=== PATIENT | male | born 1980 | race Caucasian/White ===

== ENCOUNTER 2016-08-14 19:51 | Emergency (ER) | payer OTHER ==
[~2016-08-14] VITALS: Ht 172.7 cm; Wt 104.3 kg
[2016-08-14 21:13] VITALS: BP 145/86
== END 2016-08-14 21:15 ==
LOC: ER 19:53
DX: F10.10 Alcohol abuse, uncomplicated (principal); F12.10 Cannabis abuse, uncomplicated; E86.0 Dehydration; F31.9 Bipolar disorder, unspecified; F32.9 Major depressive disorder, single episode, unspecified
CPT/HCPCS: A4606; Z7610

== ENCOUNTER 2019-08-17 04:35 | Inpatient (IN) | payer MEDICAID, OTHER ==
[~2019-08-17] VITALS: Ht 177.8 cm; Wt 108.9 kg
[2019-08-17] MEDS ORDERED: LORAZEPAM INJ 2 MG/ML VIAL ONE ×3 (04:39→05:54)
[2019-08-17] MEDS ORDERED: LORAZEPAM INJ 2 MG/ML VIAL IM ONE ×3 (05:00→06:00)
--- NOTE | 2019-08-17 11:01 | NUR ---
PT WOKE UP URINATED ON HIMSEL CHANGED AND CLEN PT. TOLERATING POS FELL BACK TO SLEEP
--- NOTE | 2019-08-17 16:16 | NUR ---
pt still sleepy cont to monitor
[2019-08-17] MEDS ORDERED: IV NS 0.9% 1,000 ML BAG IV ONE (19:00)
[2019-08-17 19:02] LABS: BASOPHILS # (AUTO) 0.1 /CMM (0.0-0.2); BASOPHILS % (AUTO) 1.1 % (0.0-2.0); EOSINOPHILS % (AUTO) 0.1 % (0.0-6.0); HEMATOCRIT 45 % (39-51); HEMOGLOBIN 15.1 g/dL (13.5-17.5); LYMPHOCYTES # (AUTO) 2.5 /CMM (0.8-4.8); LYMPHOCYTES % (AUTO) 17.8 % (20.0-44.0); MEAN CORPUSCULAR HGB CONC 34 g/dl (31.0-36.0); MEAN CORPUSCULAR VOLUME 91 fL (80-96); MONOCYTES # (AUTO) 1.6 /CMM (0.1-1.30); MONOCYTES % (AUTO) 11.9 % (2.0-12.0); NEUTROPHILS # (AUTO) 9.6 /CMM (1.8-8.9); NEUTROPHILS % (AUTO) 69.1 % (43.0-81.0); PLATELET COUNT (AUTO) 234 /CMM (150-450); RED BLOOD CELL COUNT(AUTO) 4.91 MIL/uL (4.5-6.0); WHITE BLOOD COUNT (AUTO) 13.8 K/uL (4.3-11.0)
--- NOTE | 2019-08-17 19:10 | NUR ---
pt awake iv strted 22g rt fa labs and ua sent to lab vss
[2019-08-17 19:12] LABS: APPEARANCE,URINE Clear (CLEAR); BILIRUBIN,URINE SMALL (NEGATIVE); BLOOD, URINE Large Ery/uL (NEGATIVE); COLOR,URINE Dark (YELLOW); KETONES,URINE 15 (NEGATIVE); LEUKOCYTE ESTERASE ,URINE Negative (NEGATIVE); NITRITE, URINE Negative (NEGATIVE); PROTEIN,URINE 100 mg/dl (NEGATIVE); UGLUCOSE Negative (NEGATIVE)
[2019-08-17 19:18] LABS: ALANINE AMINOTRANSFERASE 118 U/L (12-78); ALBUMIN 3.7 g/dL (3.4-5.0); ALKALINE PHOSPHATASE 70 U/L (46-116); ASPARTATE AMINOTRANSFERASE 367 U/L (15-37); BILIRUBIN,DIRECT 0.4 mg/dL (0.0-0.2); BILIRUBIN,TOTAL 2.1 mg/dL (0.2-1.0); CALCIUM, SERUM 8.9 mg/dL (8.5-10.1); CARBON DIOXIDE 24 mmol/L (21-32); CHLORIDE 101 mmol/L (98-107); CREATININE 1.3 mg/dL (0.6-1.3); GLUCOSE 97 mg/dL (74-106); POTASSIUM 4.4 mmol/L (3.5-5.1); SODIUM SERUM 137 mmol/L (136-145); TOTAL PROTEIN, SERUM 7.3 g/dL (6.4-8.2); UREA NITROGEN, BLOOD 27 mg/dL (7-18)
[2019-08-17 19:23] LABS: ACETAMINOPHEN 0 ug/ml (10-30); ALCOHOL, BLOOD < 3 mg/dL (0-0); SALICYLATE 0.7 mg/dL (2.8-20.0)
[2019-08-17 19:37] LABS: BACTERIA,URINE None seen /HPF (None Seen); SQUAMOUS EPITHELIAL CELL,UR None Seen /HPF (None Seen)
[2019-08-17 19:38] LABS: URINE AMORPHOUS URATE Few /HPF (None Seen)
--- NOTE | 2019-08-17 19:45 | NUR ---
Patient is resting comfortably in bed with eyes closed. Easily aroused. VSS
[2019-08-17] MEDS ORDERED: PROPOFOL 20 ML IV ONE (22:26)
--- NOTE | 2019-08-17 22:35 | NUR ---
r elbow reduction under mod sedation done with dr. donovan. total of propofol 140mcg given under direct supervision of dr donovan. see nursing intervention notes:
--- NOTE | 2019-08-17 23:27 | NUR ---
GAVE MOVESHEET TO ADMITTING FOR INSURANCE AUTH
--- NOTE | 2019-08-17 23:33 | NUR ---
Patient is resting comfortably in bed with eyes closed. Easily aroused. VSS
[2019-08-18] MEDS ORDERED: PROPOFOL 200 MG/20 ML VIAL IV ONE
[2019-08-18] MEDS ORDERED: IV NS 0.9% 1,000 ML BAG IV ONE
[2019-08-18] MEDS ORDERED: IV NS 0.9% 1,000 ML IV PRN ×2 (00:01→12:47)
--- NOTE | 2019-08-18 00:07 | NUR ---
REPORT GIVEN TO WERO SUH.
--- NOTE | 2019-08-18 00:08 | NUR ---
BED 329
[2019-08-18 00:25] VITALS: BP 132/72
--- NOTE | 2019-08-18 00:25 | NUR ---
TELERN RECEIVED FROM ER VIA [facility] ACCOMPANIED BY POLICE OFFICERS AND ER STAFF. SLEEPY, SEDATED, ABLE TO ANSWER SOME QUESTIONS DURING INTERVIEW, EASILY FALLS ASLEEP. LEFT AC HL PATENT. SOME REDDENED AREAS ON RIGHT LOWER EXTREMITY AND LEFT KNEE AND THIGH. LEFT WRIST REDNESS SEEN. PICTURES TAKEN. TO CONTINUE.
[2019-08-18] MEDS ORDERED: MAGNESIUM HYDROXIDE 30 ML UDC PO PRN (00:30)
[2019-08-18] MEDS ORDERED: MORPHINE SULFATE INJ 2 MG/ML DISP.SYRIN IV PRN (00:30)
[2019-08-18] MEDS ORDERED: HYDROCODONE/APAP 5/325MG 1 EACH TABLET PO PRN (00:30)
[2019-08-18] MEDS ORDERED: MAG HYDROX/AL HYDROX/SIMETH 30 ML UDC PO PRN (00:30)
[2019-08-18] MEDS ORDERED: ACETAMINOPHEN 325 MG TABLET PO PRN (00:30)
[2019-08-18] MEDS ORDERED: Z GUARD REMEDY 2 OZ OINT TP PRN (00:30)
[2019-08-18] MEDS ORDERED: ONDANSETRON HCL/PF 4 MG/2 ML VIAL IVP PRN (00:30)
[2019-08-18 01:04] LABS: BASOPHILS # (AUTO) 0.1 /CMM (0.0-0.2); BASOPHILS % (AUTO) 0.6 % (0.0-2.0); EOSINOPHILS % (AUTO) 0.1 % (0.0-6.0); HEMATOCRIT 42 % (39-51); LYMPHOCYTES # (AUTO) 1.6 /CMM (0.8-4.8); LYMPHOCYTES % (AUTO) 13.4 % (20.0-44.0); MEAN CORPUSCULAR HGB CONC 33 g/dl (31.0-36.0); MEAN CORPUSCULAR VOLUME 91 fL (80-96); MONOCYTES # (AUTO) 1.2 /CMM (0.1-1.30); MONOCYTES % (AUTO) 10.3 % (2.0-12.0); NEUTROPHILS # (AUTO) 8.9 /CMM (1.8-8.9); NEUTROPHILS % (AUTO) 75.6 % (43.0-81.0); PLATELET COUNT (AUTO) 159 /CMM (150-450); RED BLOOD CELL COUNT(AUTO) 4.65 MIL/uL (4.5-6.0); WHITE BLOOD COUNT (AUTO) 11.8 K/uL (4.3-11.0)
[2019-08-18 01:17] LABS: ALBUMIN 3.1 g/dL (3.4-5.0); BILIRUBIN,TOTAL 1.8 mg/dL (0.2-1.0); CREATININE 1.1 mg/dL (0.6-1.3); POTASSIUM 3.9 mmol/L (3.5-5.1); TOTAL PROTEIN, SERUM 6.2 g/dL (6.4-8.2)
--- NOTE | 2019-08-18 02:30 | NUR ---
TELERN STARTED ON IVF NS AT 125CC/HR. REMAINS SR ON THE MONITOR. PATIENT DEEPLY ASLEEP.
[2019-08-18 05:56] VITALS: BP 129/81
--- NOTE | 2019-08-18 05:57 | NUR ---
TELERN REMAINS SR ON THE MONITOR. SLEEPING, EASILY AWAKENED WITH TOUCH. IVF CONTINUED. ORTHO MD TO SEE PATIENT TODAY.
--- NOTE | 2019-08-18 07:30 | NUR ---
COMPLIANCE LEAD OPENING NOTES RECEIVED PATIENT IN BED RESTING COMFORTABLY IN MODERATE HIGH BACK REST. PER INSPECTOR RAW QUARTZ NURSE PATIENT IS SEDATED, AWAKE OVERNIGHT MONITOR OUTSIDE THE ROOM. NO SIGNS OF DISTRESS NOTED AT THIS TIME. IV FLUIDS ON RAC#20 RUNNING @125 ML/HR. PATENT AND INTACT. ON TELE MONITOR WITH CURRENT READING OF SR WITH HR OF 72. SAFETY MEASURES IN PLACE, BED IN LOWEST LOCKED POSITION WITH SIDE RAILS UP X3. CALL LIGHT WITHIN REACH. WILL CONTINUE TO MONITOR. Addendum: 08/18/19 at 1043 by LUIS AGARWAL RN PATIENT IS HANDCUFF TO THE BED.
[2019-08-18 08:00] VITALS: BP 113/61
--- NOTE | 2019-08-18 10:30 | NUR ---
RN NOTES PATIENT CAMEBACK FROM CT, NO SIGNS OF DISTRESS NOTED. V/S WNL. WILL CONTINUE TO MONITOR.
--- NOTE | 2019-08-18 10:30 | NUR ---
RN NOTES PATIENT LEFT UNIT VIA HOSPITAL BED WITH [address]AFF GO[address] ON ELBOW, NO SIGNS OF DISTRESS. V/S WNL.
--- NOTE | 2019-08-18 11:49 | NUR ---
BABY STROLLER RENTAL CLERK was informed by YURI Capellan that [facility] released the pt. and requested to call them once pt. is ready for discharge. Per YURI Capellan, they will picker tender the pt. upon discharge. Officer Gino (#[id number]) Call [employer] Professor .
--- NOTE | 2019-08-18 16:30 | NUR ---
RN NOTES PICKED UP BY O.R STAFF VIA HOSPITAL BED GOING FOR SURGERY (CLOSE REDUCTION OF RIGHT ELBOW), CONSENT SIGNED, V/S WNL. NO SIGNS OF DISTRESS NOTED.
[2019-08-18] MEDS ORDERED: ANESTHESIA TRAY IN PYXIS 1 EA TRAY MC ONE (16:34)
[2019-08-18] MEDS ORDERED: FENTANYL PF 100MCG/2ML AMPUL ONE ×2 (16:47→17:56)
--- NOTE | 2019-08-18 18:50 | NUR ---
RN CLOSING NOTES PATIENT JUST CAME BACK FROM SURGERY VIA HOSPITAL BED WITH 2 OR STAFF. PATIENT ASLEEP, S/P CLOSED REDUCTION ON RIGHT ELBOW. NOTED SLING ON RIGHT ARM. V/S WNL. NO SIGNS OF DISTRESS. ALL ORDERS IN AND CARRIED OUT. WILL ENDORSE TO REPAIRER RESISTANCE WELDING MACHINES NURSE FOR MAHOGANY.
--- NOTE | 2019-08-18 19:00 | NUR ---
MS RN OPENING NOTES Received patient A/O x3, awake on bed. On RA, no SOB/respiratory distress noted at this time. S/P R elbow close reduction day 0, with sling on, with controllable pain level at this time. Reinstructed patient not to move the affected elbow, ROM to fingers only. Kept on bed clean, dry and comfortable. Call light within easy reach. On fall and aspiration precautions. Call light within easy reach. Will continue to monitor accordingly.
[2019-08-18 20:42] VITALS: BP 133/71
[2019-08-18 20:44] VITALS: BP 100/54
--- NOTE | 2019-08-19 06:33 | NUR ---
MS RN CLOSING NOTES Patient asleep, easily awaken on bed. On RA, no SOB/respiratory distress noted at this time. No new unusualities noted at this time. All due meds given as ordered. All nursing needs attended. Kept on bed clean, dry and comfortable. On fall and aspiration precautions. Call light within easy reach. Endorsed to the next shift.
--- NOTE | 2019-08-19 07:20 | NUR ---
MS/RN OPENING NOTES RECEIVED PATIENT IN BED SLEEPING COMFORTABLY. EASILY AROUSABLE. NO PAIN OR ACUTE DISTRESS AT THIS TIME. RESPIRATION EVEN AND UNLABORED. SKIN IS DRY WARM TO TOUCH. PATIENT NOTED WITH SLING ON R ELBOW. CONTINUES TO REINFORCE TO NOT MOVE THE AFFECTED ELBOW. ALL NEEDS ANTICIPATED. CALL LIGHT WITHIN REACHED. BED LOCKED AND IN LOWEST POSITION. SAFETY MAINTAINED. WILL CONTINUE TO MONITOR CLOSELY.
[2019-08-19 07:37] LABS: BASOPHILS % (AUTO) 0.5 % (0.0-2.0); EOSINOPHILS % (AUTO) 0.6 % (0.0-6.0); HEMATOCRIT 40 % (39-51); HEMOGLOBIN 13.6 g/dL (13.5-17.5); LYMPHOCYTES # (AUTO) 1.3 /CMM (0.8-4.8); LYMPHOCYTES % (AUTO) 21.7 % (20.0-44.0); MEAN CORPUSCULAR HGB CONC 34 g/dl (31.0-36.0); MEAN CORPUSCULAR VOLUME 92 fL (80-96); MONOCYTES # (AUTO) 0.8 /CMM (0.1-1.30); MONOCYTES % (AUTO) 12.9 % (2.0-12.0); NEUTROPHILS # (AUTO) 3.9 /CMM (1.8-8.9); NEUTROPHILS % (AUTO) 64.3 % (43.0-81.0); PLATELET COUNT (AUTO) 145 /CMM (150-450); RED BLOOD CELL COUNT(AUTO) 4.41 MIL/uL (4.5-6.0); WHITE BLOOD COUNT (AUTO) 6.1 K/uL (4.3-11.0)
[2019-08-19 07:57] LABS: ALBUMIN 2.7 g/dL (3.4-5.0); BILIRUBIN,TOTAL 0.7 mg/dL (0.2-1.0); CALCIUM, SERUM 8.1 mg/dL (8.5-10.1); CREATININE 0.7 mg/dL (0.6-1.3); PHOSPHORUS 2.2 mg/dL (2.5-4.9); POTASSIUM 3.7 mmol/L (3.5-5.1); TOTAL PROTEIN, SERUM 5.9 g/dL (6.4-8.2)
[2019-08-19] MEDS ORDERED: K PHOS NEUTRAL 250 MG TABLET PO ONE ×2 (08:30→10:00)
[2019-08-19 08:49] VITALS: BP 116/60
--- NOTE | 2019-08-19 13:12 | NUR ---
MS RN NOTES PLACED CALL TO [employer], VAN DRIVER ([phone]) AND SPOKE WITH SGT JANG. MADE AWARE THAT PATIENT'S FATHER IS AT BEDSIDE AND ARE ANTICIPATING TO BE DISCHARGED TODAY. SGT JANG VERBALIZED EITHER HIM OR DETECTIVES WILL BE GIVING UNIT CALL BACK. PRIMARY NURSE MADE AWARE, CHARGE NURSE AWARE. WILL CONTINUE TO MONITOR
--- NOTE | 2019-08-19 14:59 | NUR ---
Social service consult requested by Dr. Day for evaluation. Per notes, pt. is a 38-year-old male with documented past medical history of bipolar and depression, presented to the emergency department on Sunday night from home for evaluation of erratic behavior as well as methamphetamine use. Patient has a known history of methamphetamine and alcohol abuse and dependency. Patient is in custody due to violation of restraining order. Patient's parents called the police and reported that the patient was acting erratically but not violently. In the emergency department patient complained of right arm pain. Neurological exams revealed right elbow dislocation. LAST SAWYER met with the pt. and his father bedside. Pt. has called his father to pick him up from the hospital. Pt. is alert and oriented x 4. Pt. had an elbow dislocation and had surgery this AM. Pt. states he lives with his father, however father stated, that he has a restraining order against the son and he cannot reside there. Pt. has been living with friends, per his father. Pt. uses methamphetamines and last used on Sunday. Pt. was in a drug treatment program at [facility] but got permission from the blender to leave for [place] and ended up at his father's house. Pt. got arrested at his father's house due to breaking the restraining order and acting erratic. Pt. has a psychiatric diagnosis of Bipolar and Schizophrenia and is not medication compliant. Pt. denies suicidal and homicidal ideations and visual and auditory hallucinations at this time. Per MD Hutchinson, pt. to be discharged tomorrow. YURI Capellan called [employer] watch assembler per their request. LAST SAWYER is available, if needed.
[2019-08-19 16:37] VITALS: BP 110/70
--- NOTE | 2019-08-19 18:32 | NUR ---
MS/RN CLOSING NOTES PATIENT CONTINUES TO REMAIN IN STABLE CONDITION THROUGHOUT THE SHIFT. PROVIDED COMFORT AND SAFETY. PATIENT ABLE TO TOLERATE MEALS AND MEDS WELL. PATIENT NOTED WITH SLING ON R ELBOW. CONTINUES TO REINFORCE TO NOT MOVE THE AFFECTED ELBOW. ALL NEEDS ANTICIPATED. CALL LIGHT WITHIN REACHED. BED LOCKED AND IN LOWEST POSITION. SAFETY MAINTAINED. WILL CONTINUE TO MONITOR CLOSELY. ENDORSED TO PM NURSE FOR MAHOGANY.
--- NOTE | 2019-08-19 19:15 | NUR ---
MS RN OPENING NOTES Received patient asleep on bed easily awaken. On RA, no respiratory distress noted at this time. With sling on the R arm. Patient denies any discomfort at this time. With IVF infusing well as ordered. Kept on bed clean, dry and comfortable. Call light within easy reach. Will continue to monitor accordingly.
[2019-08-19 21:26] VITALS: BP 131/73
[2019-08-20] VITALS: BP 102/55
[2019-08-20 04:00] VITALS: BP 106/63
--- NOTE | 2019-08-20 06:39 | NUR ---
MS RN CLOSING NOTES Patient asleep on bed, easily awaken. On RA, no SOB/respiratory distress noted at this time. Patient denies any discomfort at this time. Kept on bed clean, dry and comfortable. On fall and aspiration precautions. Call light within easy reach. Endorsed to the next shift.
--- NOTE | 2019-08-20 07:10 | NUR ---
MS RN OPENING NOTES RECEIVED PATIENT IN BED ASLEEP, AROUSABLE TO VERBAL AND TACTILE STIMULI. HOB ELEVATED, NO SOB OBSERVED. DENIES ANY C/O PAIN NOR DISCOMFORT. RIGHT ARM DRESSING AND SLING IN PLACE. LEFT AC # 20 INTACT AND PATENT. BED IN LOWEST POSITION, LOCKED. BED ALARM ON. CALL LIGHT WITHIN REACH.
[2019-08-20 07:59] LABS: BASOPHILS % (AUTO) 0.5 % (0.0-2.0); EOSINOPHILS % (AUTO) 1.6 % (0.0-6.0); HEMATOCRIT 41 % (39-51); HEMOGLOBIN 13.4 g/dL (13.5-17.5); LYMPHOCYTES # (AUTO) 1.6 /CMM (0.8-4.8); LYMPHOCYTES % (AUTO) 27.4 % (20.0-44.0); MEAN CORPUSCULAR HGB CONC 33 g/dl (31.0-36.0); MEAN CORPUSCULAR VOLUME 92 fL (80-96); MONOCYTES # (AUTO) 0.6 /CMM (0.1-1.30); MONOCYTES % (AUTO) 10.9 % (2.0-12.0); NEUTROPHILS # (AUTO) 3.4 /CMM (1.8-8.9); NEUTROPHILS % (AUTO) 59.6 % (43.0-81.0); PLATELET COUNT (AUTO) 157 /CMM (150-450); RED BLOOD CELL COUNT(AUTO) 4.42 MIL/uL (4.5-6.0); WHITE BLOOD COUNT (AUTO) 5.7 K/uL (4.3-11.0)
[2019-08-20 08:00] VITALS: BP 135/77
[2019-08-20 08:10] LABS: CALCIUM, SERUM 8.3 mg/dL (8.5-10.1); CREATININE 0.7 mg/dL (0.6-1.3); POTASSIUM 3.7 mmol/L (3.5-5.1)
--- NOTE | 2019-08-20 10:00 | NUR ---
MS RN NOTES PATIENT GETTING READY TO LEAVE, INFORMED PATIENT TO WAIT FOR MD.
--- NOTE | 2019-08-20 10:15 | NUR ---
MS RN NOTES PATIENT'S FATHER BROUGHT PATIENT'S HOME MEDICATION.
--- NOTE | 2019-08-20 10:30 | NUR ---
MS RN NOTES PATIENT'S FATHER TOOK PATIENT'S HOME MEDICATION HE BROUGHT SINCE PATIENT IS GOING TO BE DISCHARGE TODAY.
--- NOTE | 2019-08-20 11:54 | NUR ---
KEVEN was informed by case packer and sealer Gloria that she received a call from [employer] who informed her that pt. can be released to go home with his family. PRESIDENTIAL HELICOPTER CREW CHIEF met with the pt. bedside. Pt. is alert and oriented x 4. Pt. appears anxious to be wanting to leave the hospital. Pt's father is waiting for him in the lobby. Pt. states his father is taking him to his friend's place. PRESIDENTIAL HELICOPTER CREW CHIEF provided active listening and supportive counseling and gave pt the following drug and alcohol treatment center resources: [facility], ; [facility]stance Abuse [facility]line and [facility] . No other social service needs are requested at this time.
--- NOTE | 2019-08-20 12:30 | NUR ---
MS RN CLOSING/DISCHARGE NOTES PATIENT ALERT AND ORIENTED X4. PATIENT APOLOGIZE FOR BEING RUDE AND THANKFUL FOR THE CARE PROVIDED. PER PATIENT "I'M ANXIOUS AND WANT TO GO HOME." PATIENT REFUSED PICTURES TO BE TAKEN. ALL BELONGINGS ACCOUNTED FOR. DISCHARGE INSTRUCTIONS AND PACKET GIVEN TO PATIENT ALONG WITH EDUCATION PROVIDED. RIGHT ARM DRESSING WITH SLING IN PLACE. AMBULATORY WITH STEADY GAIT. DENIES ANY C/O PAIN NOR DISCOMFORT. REMINDED PATIENT TO SCHEDULE AN APPOINTMENT WITH DR. WORTHY IN 7 DAYS AND ALSO SCHEDULE A FOLLOW UP APPOINTMENT WITH PCP IN 1 WK AND ROM TO FINGERS ONLY AND NO MOVEMENT TO RT ELBOW. PATIENT PICKED UP BY FATHER IN PRIVATE CARE AND LEFT IN STABLE CONDITION.
== END 2019-08-20 12:25 | disposition home or self-care (01) | DRG 342 ==
LOC: ER 04:36 → TELE 08-18 00:10
PROVIDERS: ADMIT Nurse Practitioner Acute Care; ATTEND Nurse Practitioner Acute Care
PROC: 0RSLXZZ Reposition Right Elbow Joint, External Approach (ICD-10-PCS; principal; 2019-08-18)
DX: S53.124A Posterior dislocation of right ulnohumeral joint, initial encounter (principal); M62.82 Rhabdomyolysis; E44.1 Mild protein-calorie malnutrition; E88.09 Other disorders of plasma-protein metabolism, not elsewhere classified; D72.829 Elevated white blood cell count, unspecified; S52.041A Displaced fracture of coronoid process of right ulna, initial encounter for closed fracture; E66.9 Obesity, unspecified; F15.90 Other stimulant use, unspecified, uncomplicated; X58.XXXA Exposure to other specified factors, initial encounter; Y92.9 Unspecified place or not applicable; F32.9 Major depressive disorder, single episode, unspecified; R74.0 Nonspecific elevation of levels of transaminase and lactic acid dehydrogenase [LDH]; F10.20 Alcohol dependence, uncomplicated; Y90.0 Blood alcohol level of less than 20 mg/100 ml; Y93.9 Activity, unspecified; Y92.009 Unspecified place in unspecified non-institutional (private) residence as the place of occurrence of the external cause; Z68.34 Body mass index [BMI] 34.0-34.9, adult
CPT/HCPCS: 36415; 73080-TC; 73090-TC; 73110; 73200-TC; 80048-TC; 80053-TC; 80076-TC; 80305; 81000-TC; 82550-TC; 83735-TC; 84100-TC; 84484-TC; 85025-TC; 86850-TC; 87081-TC; 87086-TC; A4217; G0378; G0480; G0500; J2060; J2704; J3010; J3490; J7030; J7040

== ENCOUNTER 2019-09-15 13:43 | Emergency (ER) | payer OTHER, MEDICAID ==
[~2019-09-15] VITALS: Ht 172.7 cm; Wt 113.4 kg
--- NOTE | 2019-09-15 14:02 | NUR ---
PT [id number]. [id number], [employer] for [employer]. Per [employer] broke into mothers house and possibly on meth. Pt given 5 of versed per RA. Placed on monitor and pulse ox. Pt not willing to tell me if he is in pain. No acute distress noted. Pt hyperactive. vss.
[2019-09-15] MEDS ORDERED: LORAZEPAM 1 MG TABLET PO ONE (15:00)
[2019-09-15] MEDS ORDERED: LORAZEPAM 1 MG TABLET ONE (15:11)
--- NOTE | 2019-09-15 15:54 | NUR ---
Patient discharged to home in stable condition. Written and verbal after care instructions given. Patient verbalizes understanding of instruction. Pt Medically Cleared for Booking. VSS.
[2019-09-15 15:55] VITALS: BP 136/76
--- NOTE | 2019-09-15 15:55 | NUR ---
Pt left with [employer] in custody.
== END 2019-09-15 16:33 ==
LOC: ER 13:44
DX: F15.10 Other stimulant abuse, uncomplicated (principal); F10.10 Alcohol abuse, uncomplicated; R45.1 Restlessness and agitation; F25.9 Schizoaffective disorder, unspecified; F31.9 Bipolar disorder, unspecified; Y90.9 Presence of alcohol in blood, level not specified; Z02.89 Encounter for other administrative examinations

== ENCOUNTER 2023-12-26 16:20 | Emergency (ER) | payer MEDICAID, OTHER ==
[~2023-12-26] VITALS: Ht 172.7 cm; Wt 120.2 kg
[2023-12-26 17:09] LABS: BASOPHILS # (AUTO) 0.1 K/uL (0.0-0.2); BASOPHILS % (AUTO) 0.8 % (0.0-2.0); EOSINOPHILS # (AUTO) 0.2 K/uL (0.0-0.7); EOSINOPHILS % (AUTO) 2.6 % (0.0-6.0); HEMATOCRIT 40 % (39-51); HEMOGLOBIN 13.2 g/dL (13.5-17.5); LYMPHOCYTES # (AUTO) 1.5 K/uL (0.8-4.8); LYMPHOCYTES % (AUTO) 16.8 % (20.0-44.0); MEAN CORPUSCULAR HEMOGLOBIN 29 PG (26.0-33.0); MEAN CORPUSCULAR HGB CONC 33 g/dl (31.0-36.0); MEAN CORPUSCULAR VOLUME 90 fL (80-96); MONOCYTES # (AUTO) 0.5 K/uL (0.1-1.30); MONOCYTES % (AUTO) 5.3 % (2.0-12.0); NEUTROPHILS # (AUTO) 6.4 K/uL (1.8-8.9); NEUTROPHILS % (AUTO) 74.5 % (43.0-81.0); PLATELET COUNT (AUTO) 229 K/uL (150-450); RED BLOOD CELL COUNT(AUTO) 4.49 MIL/uL (4.5-6.0); RED CELL DISTRIBUTION WIDTH 14.8 % (11.5-15.0); WHITE BLOOD COUNT (AUTO) 8.7 K/uL (4.3-11.0)
[2023-12-26 17:16] LABS: CALCIUM, SERUM 8.9 mg/dL (8.5-10.1); CARBON DIOXIDE 29 mmol/L (21-32); CHLORIDE 103 mmol/L (98-107); CREATININE 0.9 mg/dL (0.6-1.3); GLUCOSE 82 mg/dL (74-106); POTASSIUM 3.5 mmol/L (3.5-5.1); SODIUM SERUM 137 mmol/L (136-145); UREA NITROGEN, BLOOD 9 mg/dL (7-18)
[2023-12-26 17:22] LABS: ALANINE AMINOTRANSFERASE 24 U/L (12-78); ALBUMIN 3.3 g/dL (3.4-5.0); ALCOHOL, BLOOD < 3 mg/dL (0-10); ALKALINE PHOSPHATASE 70 U/L (46-116); ASPARTATE AMINOTRANSFERASE 29 U/L (15-37); BILIRUBIN,DIRECT 0.2 mg/dL (0.0-0.2); BILIRUBIN,TOTAL 0.8 mg/dL (0.2-1.0)
[2023-12-26 17:38] LABS: ACETAMINOPHEN 0 ug/ml (10-30); SALICYLATE 0.9 mg/dL (2.8-20.0)
[2023-12-26] MEDS ORDERED: diphenhydrAMINE HCL 50 MG/ML VIAL ONE (20:19)
[2023-12-26] MEDS ORDERED: LORAZEPAM INJ 2 MG/ML VIAL ONE (20:20)
[2023-12-26] MEDS: diphenhydrAMINE HCL 50 MG/ML VIAL IM ONE (20:27)
[2023-12-26] MEDS: LORAZEPAM INJ 2 MG/ML VIAL IM ONE (20:27)
[2023-12-27] MEDS ORDERED: diphenhydrAMINE HCL 50 MG/ML VIAL ONE (00:07)
[2023-12-27] MEDS ORDERED: LORAZEPAM INJ 2 MG/ML VIAL ONE ×2 (00:07→08:45)
[2023-12-27] MEDS ORDERED: ZIPRASIDONE MESYLATE 20 MG/VIAL VIAL IM ONE (00:07)
[2023-12-27] MEDS: LORAZEPAM INJ 2 MG/ML VIAL IV ONE (00:21)
[2023-12-27] MEDS: ZIPRASIDONE MESYLATE 20 MG/VIAL VIAL IM ONE (00:21)
[2023-12-27] MEDS: diphenhydrAMINE HCL 50 MG/ML VIAL IV ONE (00:22)
[2023-12-27 02:00] LABS: APPEARANCE,URINE CLEAR (CLEAR); BILIRUBIN,URINE 1+ (NEGATIVE); BLOOD, URINE NEGATIVE Ery/uL (NEGATIVE); COLOR,URINE YELLOW (YELLOW); KETONES,URINE TRACE mg/dL (NEGATIVE); LEUKOCYTE ESTERASE ,URINE TRACE (NEGATIVE); NITRITE, URINE NEGATIVE (NEGATIVE); PH,URINE 7.5 (5.0-8.0); PROTEIN,URINE NEGATIVE (NEGATIVE); UGLUCOSE NEGATIVE (NEGATIVE)
[2023-12-27 03:40] LABS: BARBITURATE, URINE NEGATIVE (NEGATIVE); COCCAINE, URINE NEGATIVE (NEGATIVE); OPIATE, URINE NEGATIVE (NEGATIVE); PHENCYCLIDINE SCREEN,URINE NEGATIVE (NEGATIVE)
[2023-12-27 04:01] LABS: AMPHETAMINE, URINE POSITIVE (NEGATIVE); BENZODIAZEPINE, URINE POSITIVE (NEGATIVE); CANNABINOID, URINE POSITIVE (NEGATIVE)
[2023-12-27 04:30] LABS: RBC,URINE 0-2 /HPF (0-2)
[2023-12-27 04:31] LABS: ADD URINE CULTURE YES; BACTERIA,URINE Few /HPF (None Seen); SQUAMOUS EPITHELIAL CELL,UR None Seen /HPF (None Seen); URINE AMORPHOUS PHOSPHATES Moderate /HPF (None Seen)
[2023-12-27] MEDS ORDERED: OLANZAPINE 10 MG VIAL IM ONE (08:45)
[2023-12-27] MEDS: OLANZAPINE 10 MG VIAL IM ONE (08:46)
[2023-12-27] MEDS: LORAZEPAM INJ 2 MG/ML VIAL IM ONE (08:46)
[2023-12-27 12:45] LABS: BASOPHILS # (AUTO) 0.1 K/uL (0.0-0.2); BASOPHILS % (AUTO) 0.6 % (0.0-2.0); EOSINOPHILS % (AUTO) 0.2 % (0.0-6.0); HEMATOCRIT 46 % (39-51); HEMOGLOBIN 15.3 g/dL (13.5-17.5); LYMPHOCYTES % (AUTO) 10.2 % (20.0-44.0); MEAN CORPUSCULAR HEMOGLOBIN 30 PG (26.0-33.0); MEAN CORPUSCULAR HGB CONC 33 g/dl (31.0-36.0); MEAN CORPUSCULAR VOLUME 90 fL (80-96); MONOCYTES # (AUTO) 0.3 K/uL (0.1-1.30); MONOCYTES % (AUTO) 2.7 % (2.0-12.0); NEUTROPHILS # (AUTO) 8.2 K/uL (1.8-8.9); NEUTROPHILS % (AUTO) 86.3 % (43.0-81.0); PLATELET COUNT (AUTO) 264 K/uL (150-450); RED BLOOD CELL COUNT(AUTO) 5.14 MIL/uL (4.5-6.0); RED CELL DISTRIBUTION WIDTH 14.8 % (11.5-15.0); WHITE BLOOD COUNT (AUTO) 9.5 K/uL (4.3-11.0)
[2023-12-27 12:54] LABS: CALCIUM, SERUM 8.9 mg/dL (8.5-10.1); POTASSIUM 3.8 mmol/L (3.5-5.1)
[2023-12-27] MEDS: IV NS 0.9% 1,000 ML BAG IV ONE (13:01)
[2023-12-27 15:38] VITALS: BP 141/91; TEMP 98.2; O2SAT 96
== END 2023-12-27 15:38 ==
LOC: ER 16:27
DX: R46.1 Bizarre personal appearance (principal); Z20.822 Contact with and (suspected) exposure to COVID-19
CPT/HCPCS: 99285; 96372 ×3; 85025 ×2; 80048 ×2; 80076; 36415 ×2; 87426; 80143; 80320; 80307; 96374; 96375; 82550 ×2; 87086; 81001; 82553; J2060 ×3; J1200 ×2; J3486; J3490; G0480